=== PATIENT | female | born 1995 | race African-American/Black ===

== ENCOUNTER 2020-12-01 10:49 | Emergency (ER) | payer SELFPAY ==
[2020-12-01 11:00] VITALS: BP 116/75; PULSE 102; RESP 16; TEMP 36.3; O2SAT 98
--- NOTE | 2020-12-01 11:34 | ED.URI ---
HPI - URI/Sore Throat General Chief Complaint: Upper Respiratory Infection Stated Complaint: Sore Throat Time Seen by Provider: 12/01/20 11:35 Source: patient Mode of arrival: ambulatory Limitations: no limitations History of Present Illness HPI Narrative: Marla Hall is a 25 yo female with a PMH of asthma who comes to [facility] with worsening sore throat and pain along her throat and her sinuses that started over a week ago-she has been seen twice at other facilities for the same symptoms, strep has been running the past been negative. But lately but she is running a fever the last 24 hours also has been unable to eat, gagged and vomited twice yesterday Related Data Allergies Allergy/AdvReac Type Severity Reaction Status Date / Time No Known Allergies Allergy Verified 12/01/20 11:08 Review of Systems Review of Systems: CONSTITUTIONAL: Denies fever, chills, sweats. EYES: Denies visual changes, redness, discharge. ENT: Denies rhinorrhea, has congestion, has throat, has bilateral otalgia. CARDIOVASCULAR: Denies chest pain, palpitations, edema. RESPIRATORY: Denies dyspnea, wheezing, cough GASTROINTESTINAL: Denies abdominal pain, nausea, vomiting, diarrhea. GENITOURINARY: Denies dysuria, hematuria, abnormal discharge SKIN: Denies rash or itching. NEUROLOGIC: Denies numbness, or focal weakness. PSYCHIATRIC: Denies anxiety or depression. [facility] Past Medical History Medical History Asthma Family History Family History Other Hypertension Social History Social History (Updated 12/01/20 @ 11:39 by Elin Alan CNP) Smoking status: Never smoker Alcohol intake: current Comments At time of signature, I agree with nursing past medical, surgical, social and family history. There is no relevant family history pertinent to the presenting complaint. Exam Narrative: GENERAL: This is a well-nourished, well-developed patient, in moderate distress. HEAD: normocephalic, atraumatic. EYES: Sclera clear/white. Vision is grossly intact. EARS: External ears normal, auditory canals erythema and without drainage, TMs normal without perforation. Hearing grossly intact. NOSE: External nose normal without nasal discharge, nares with redness, has rhinorrhea. THROAT: Mucous membranes moist, posterior pharynx erythema NECK: Neck supple, enlarged submandibular lymph nodes CARDIOVASCULAR: Regular rate and rhythm without murmurs, gallops, or rubs. RESPIRATORY: Clear to auscultation. Breath sounds equal bilaterally. No wheezes, rales, or rhonchi. GASTROINTESTINAL: Abdomen soft, non-tender, SKIN: warm, intact with no suspicious lesions or rash, good texture and turgor. NEURO: awake, alert, and oriented to person, place and time. There were no obvious focal neurologic abnormalities. Steady gait EXTREMITIES: Normal range of motion. BACK: Nontender without deformity Course Course Emergency Course: Patient has ongoing symptoms of sore throat bilateral ear pain and enlarged painful lymph nodes that have worsened since last Saturday Strep negative sent for culture Based on clinical picture , started on Augmentin, ibuprofen Discussed hydration and eating soft food Vital Signs Vital signs: Vital Signs Temperature 97.3 F L 12/01/20 11:00 Pulse Rate 102 H 12/01/20 11:00 Respiratory Rate 16 12/01/20 11:00 Blood Pressure 116/75 12/01/20 11:00 Pulse Oximetry 98 12/01/20 11:00 Temperature 97.3 F L 12/01/20 11:00 Pulse Rate 102 H 12/01/20 11:00 Respiratory Rate 16 12/01/20 11:00 Blood Pressure 116/75 12/01/20 11:00 Pulse Oximetry 98 12/01/20 11:00 MDM - URI/Sore Throat Differential Diagnosis Differential diagnosis: Likely upper respiratory infection, otitis media, sinusitis, pharyngitis and other Lab Data Labs: Strep Screen Presumptive Negative
== END 2020-12-01 11:55 | disposition home or self-care (01) ==
PROVIDERS: Emergency Provider Nurse Practitioner
DX: J03.90 Acute tonsillitis, unspecified (principal); H92.03 Otalgia, bilateral; J45.909 Unspecified asthma, uncomplicated
CPT/HCPCS: 87081; 87880; 99203; G0463